=== PATIENT | male | born 1975 | race African-American/Black ===

== ENCOUNTER 2020-04-27 17:40 | Outpatient (CLI) | payer OTHER | END 2020-04-27 17:53 | disposition home or self-care (01) | LOC: LAB 17:40 | PROVIDERS: ATTEND Urology | DX: R97.20 Elevated prostate specific antigen [PSA] (principal) ==

== ENCOUNTER 2020-06-17 07:17 | Outpatient (CLI) | payer OTHER | END 2020-06-17 07:28 | disposition home or self-care (01) | LOC: SONOGRAMA 07:17 | PROVIDERS: ATTEND Urology | DX: R97.20 Elevated prostate specific antigen [PSA] (principal) ==

== ENCOUNTER 2024-08-23 18:48 | Outpatient (CLI) | payer OTHER | END 2024-08-23 23:00 | disposition home or self-care (01) | LOC: LAB 18:48 | PROVIDERS: ATTEND Urology | DX: R97.20 Elevated prostate specific antigen [PSA] (principal) ==

== ENCOUNTER 2024-09-27 07:25 | Outpatient (CLI) | payer OTHER ==
[2024-09-27] MEDS ORDERED: ATORVASTATIN CA10 MG PO (09:13)
== END 2024-09-27 07:32 | disposition home or self-care (01) ==
LOC: SONOGRAMA 07:25
PROVIDERS: ATTEND Urology
DX: N40.1 Benign prostatic hyperplasia with lower urinary tract symptoms (principal); R97.20 Elevated prostate specific antigen [PSA]

== ENCOUNTER 2024-09-27 08:52 | Emergency (ER) | payer OTHER ==
[~2024-09-27] VITALS: Ht 193 cm; Wt 97.5 kg
[2024-09-27] MEDS ORDERED: ATORVASTATIN CA10 MG PO (09:13)
[2024-09-27] MEDS ORDERED: 0.9 % SODIUM CHLORIDE 500 ML IV STA (10:04)
[2024-09-27] MEDS ORDERED: MEPERIDINE HCL/PF 25 MG/ML VIAL IM ONE (10:15)
[2024-09-27] MEDS ORDERED: MEPERIDINE HCL/PF 25 MG/ML VIAL IV ONE (10:15)
== END 2024-09-27 11:53 | disposition home or self-care (01) ==
LOC: ER 08:54
DX: K62.89 Other specified diseases of anus and rectum (principal); N40.0 Benign prostatic hyperplasia without lower urinary tract symptoms